=== PATIENT | female | born 1960 | race Caucasian/White ===

== ENCOUNTER → 2024-04-02 06:48 | Outpatient (REF) | payer BC, SELFPAY | LOC: WDC 06:48 | PROVIDERS: ATTENDING PHYSICIAN Internal Medicine Hematology & Oncology | DX: Z12.31 Encounter for screening mammogram for malignant neoplasm of breast (principal) | CPT/HCPCS: 77063; 77067 ==

== ENCOUNTER 2024-07-19 13:37 | Emergency (ER) | payer BC, SELFPAY ==
[2024-07-19 13:39] VITALS: BP 126/94
[2024-07-19] MEDS: DILAUDID 0.5 MG IV (14:28)
[2024-07-19 14:31] VITALS: BMI 25.4
--- NOTE | 2024-07-19 14:32 | ED.GENMED ---
History of Present Illness
General
Chief Complaint: Fall
Source: patient
Exam Limitations: none
Time Seen by Provider: 07/19/24 13:48
Nursing documentation reviewed up to this point in time: agreed with
History of Present Illness
History of Present Illness:
The patient is a pleasant 63-year-old female who reports that she was riding on a horse. Unfortunately, the horse bucked, throwing her forward off of the horse. Patient reports that she landed directly onto her left shoulder. She did not hit her
head. She denies headache, neck pain, back pain, weakness and numbness of her arms and legs. She denies tingling of her arms and legs. She has been able to walk without difficulty. Patient has significant deformity and pain in her left clavicle
area. The pain is primarily in her left upper chest wall area and radiates towards her left upper back. Patient denies being on any blood thinners. She denies abdominal pain. She denies nausea and vomiting. Patient is worried about clavicle
fracture.
Past History
Past History
ED Past Medical History: None
ED Past Surgical History: Other (Breast surgery)
Social History
Tobacco: Non-smoker
Alcohol: None
Drug: None
Personal:
Living: with family
Employment: Other
Family History
Family History: Other
Review of Systems
Review of Systems
Allergies reviewed?: Yes
All Other Systems: ROS reviewed and negative except as documented in HPI and ROS
Constitutional: Reports no symptoms
EENT: Reports no symptoms
Respiratory: Reports no symptoms
Cardiac: Reports other
Musculoskeletal: Reports other (Upper left chest wall pain since injury)
Skin: Reports no symptoms
Neurological: Reports no symptoms
Endocrine: Reports no symptoms
Hematologic/Lymphatic: Reports no symptoms
Psychiatric: Reports no symptoms
Phy Exam
Physical Exam
Physical Exam:
Physical Exam
General: Patient appears uncomfortable but is fully awake, alert. Nontender face and head. No areas of scalp contusion or hematoma.
Neck: supple. Nontender C-spine
Heart: s1/s2 regular rate and rhythm, no murmur. equal radial pulses.
Lungs: no acute respiratory distress. clear bilaterally. Significant swelling and soft tissue tenderness of left clavicular area. No vertebral spine tenderness
Abdomen: Soft throughout. Nondistended
Neuro: alert and oriented. no focal neurological deficits. Excellent hand decision science analyst strength of bilateral hands. Strong pulses of bilateral upper extremities. 5 out of 5 strength in all extremities. Cranial nerves equal and
symmetric bilaterally.
Skin: no rash
Psychiatric: well kept. interactive and cooperative
Extremities: Nontender upper and lower extremities. Nontender pelvis and hips.
Course
Orders/Labs/Results
Orders:
Orders
07/19/24 14:05
HYDROmorphone [Dilaudid] 0.5 mg IV NOW STA
07/19/24 14:06
Clavicle Complete, Left CR [CR Clavicle - Left Complete ] Urgent
Comment:
Reason For Exam: fall from horse
Shoulder, Left 2 View CR [CR Shoulder - Left Min 2 View*] Urgent
Comment:
Reason For Exam: fall from horse
07/19/24 14:07
Scapula, Left Complete CR [CR Scapula - Left Complete ] Urgent
Comment:
Reason For Exam: fall from horse
07/19/24 14:09
CR Chest - 2 Views Urgent
Comment:
Reason For Exam: fall off horse, L clavicle pain and L scapular bandar
07/19/24 15:21
Ondansetron Injectable [Zofran] 4 mg IV NOW STA
07/19/24 15:22
Ondansetron Injectable [Zofran] 4 mg .ROUTE .STK-MED ONE
Vital Signs
Initial and Last Documented VS:
Initial Vital Signs
Temp Pulse Resp BP Pulse Ox
98.1 F 79 18 126/94 99
07/19/24 13:39 07/19/24 13:39 07/19/24 13:39 07/19/24 13:39 07/19/24 13:39
Last Documented Vital Signs
Temp Pulse Resp BP Pulse Ox
98.1 F 79 18 126/94 99
07/19/24 13:39 07/19/24 13:39 07/19/24 13:39 07/19/24 13:39 07/19/24 13:39
MDM/Problems Addressed
Differential Diagnosis Includes:
Left clavicular fracture, rib fracture, pulmonary contusion, scapular fracture
MDM/Problems Addressed:
Patient presents with left chest wall pain and swelling after falling off of a horse today
*Radiology
Radiology exam reviewed: preliminary read by ED provider (Chest x-ray read by me. No acute disease. Left shoulder x-ray reviewed by me. No acute disease. Left scapular x-ray reviewed by me. No acute disease. Left clavicular fracture seen by
me.) and radiology read reviewed
*Pulse Oximetry
Patient hypoxic: no
*EKG
Interpreted by ED Provider?: NA
*Implementation Technician Interpretation
Rate: normal
Interpretation: normal
Rhythm: sinus
*Critical Care Note
Total Time (30-74mins, 75-104mins- exclusive of procedures): Not Applicable
Data Reviewed
Review of Other/Old Records Reveals: Operative Reports ([address] Maxwell when patient underwent lymph node mapping and biopsy)
Source: patient
Update Note
Update Note:
Patient has no evidence of neck, back, face or head injury. Patient was given Zofran because shortly after having the Dilaudid, she got nauseous. She reports that the nausea is much better. Patient is drinking fluids and eating crackers. Patient
will be encouraged to take Motrin and Tylenol for pain control of her clavicle fracture and follow-up with Ortho. Patient has strong pulses in her bilateral upper extremities and excellent cap refill.
ED Attending Note
-
Portions of this chart may have been created with voice recognition software.� Occasional wrong word or��sound alike� substitutions may have occurred due to the inherent limitations of voice recognition software.
Discharge Plan
Departure
Patient Disposition: Home (Routine Discharge)
Date of Disposition: 07/19/24
Time of Disposition: 15:39
Patient with high blood pressure during this ER visit?: No
Condition: Good
Discharge Problem:
closed distal left clavicle fracture
Instructions: Broken Collarbone ED, How to Use a Shoulder Sling ED, Fractures - Clavicle (Adult)
Prescriptions:
No Action
tobramycin 1 DROP drops
2 drops LEFT EYE Q4HWA Qty: 1 0RF
lorazepam 1 MG tablet
1 mg PO Q4HPRN PRN (Reason: Anxiety) Qty: 15 0RF
Referrals:
Ronnell Bruce MD [Family Provider] -
Mesfin Cotton MD [Active] - (Call sunday to see as soon as possible)
Activity Restrictions/Additional Instructions:
Please take ibuprofen/Motrin 600 mg every 6-8 hours with food for pain. In addition to this, you could also take 1000 mg of Tylenol every 4-6 hours for pain. Please call orthopedic doctor this Sunday to schedule follow-up soon as possible.
Interventions
Interventions:
*Risk Screen - Suicide Last Done: 07/19/24 14:31
*General Assessment Last Done: 07/19/24 13:39
*Neglect/Abuse Screening Last Done: 07/19/24 14:31
*ED COVID-19 Vaccine History Last Done: 07/19/24 14:31
ED-Musculoskeletal Assessment Last Done: 07/19/24 14:47
ED- Neurological Assessment Last Done: 07/19/24 14:47
ED-Skin Assessment Last Done: 07/19/24 14:47
Discharge Date and Time
Print Language: SLOVENIAN
[2024-07-19] MEDS: ZOFRAN 4 MG IV (15:24)
== END 2024-07-19 15:57 | disposition home or self-care (01) ==
LOC: EMR 13:37
PROVIDERS: EMERGENCY PHYSICIAN Emergency Medicine; FAMILY PHYSICIAN Family Medicine
DX: M25.512 Pain in left shoulder (principal); S42.032A Displaced fracture of lateral end of left clavicle, initial encounter for closed fracture; V80.010A Animal-rider injured by fall from or being thrown from horse in noncollision accident, initial encounter; Y93.52 Activity, horseback riding
CPT/HCPCS: 99283; 96374; 96375; 71046; 73000; 73010; 73030

== ENCOUNTER 2024-07-29 06:20 | Day surgery (SDC) | payer BC, SELFPAY ==
[2024-07-23 08:59] LABS: Hematocrit 36.5 % (37.0-47.0); Hemoglobin 12.3 g/dL (12.0-16.0); Mean Corp Hgb Conc. 33.7 g/dL (33.0-37.0); Mean Corpuscular Hgb 30.4 pg (27.0-31.0); Mean Corpuscular Volume 90.1 fL (81.0-99.0); Mean Platelet Volume 10.3 fL (7.4-10.4); Platelet Count 196 10^3/uL (130-400); Red Blood Cell Count 4.05 10^6/uL (4.20-5.40); Red Cell Dist. Width 13.4 % (11.5-14.5); White Blood Cell Count 6.6 10^3/uL (4.8-10.8)
[2024-07-23 10:51] VITALS: BMI 23.6
[2024-07-29] VITALS (12 sets, daily range): BP systolic 109–150; BP diastolic 68–90; BMI 23.6
[2024-07-29] MEDS: CELEBREX 200 MG PO (07:32)
[2024-07-29] MEDS: TYLENOL 1000 MG PO (07:32)
--- NOTE | 2024-07-29 07:50 | PTCARENOTE ---
Patient states that she has a lumpectomy and sentinel node surgery [address] Morfin made aware and orders to start the IV on the right arm and clean the site very well. Patient agreeable to use the right arm for surgery. Can not use the
left arm due to surgical site today.
[2024-07-29] MEDS: ZOFRAN 4 MG IV (10:51)
[2024-07-29] MEDS: DILAUDID 0.5 MG IV (11:05)
[2024-07-29] MEDS: DILAUDID 0.25 MG IV (11:18)
[2024-07-29] MEDS: COMPAZINE 5 MG IV (12:58)
== END 2024-07-29 13:50 | disposition home or self-care (01) ==
LOC: SDS 06:20
PROVIDERS: ATTENDING PHYSICIAN Orthopaedic Surgery; FAMILY PHYSICIAN Family Medicine
DX: S42.032A Displaced fracture of lateral end of left clavicle, initial encounter for closed fracture (principal); V80.010A Animal-rider injured by fall from or being thrown from horse in noncollision accident, initial encounter
CPT/HCPCS: 23515; 36415; 73030; 76000; 85027; 93005; C1713

== ENCOUNTER 2024-10-08 14:14 | Outpatient (RCR) | payer BC, SELFPAY | END 2024-10-08 23:59 | disposition home or self-care (01) | LOC: RPT 14:14 | PROVIDERS: ATTENDING PHYSICIAN Orthopaedic Surgery; FAMILY PHYSICIAN Family Medicine | DX: Z47.89 Encounter for other orthopedic aftercare (principal); Z73.6 Limitation of activities due to disability; M62.81 Muscle weakness (generalized); M25.511 Pain in right shoulder; Z85.3 Personal history of malignant neoplasm of breast | CPT/HCPCS: 97010; 97110; 97112; 97140; 97162 ==

== ENCOUNTER 2024-10-22 13:09 | Outpatient (RCR) | payer BC, SELFPAY | END 2024-10-22 13:48 | disposition home or self-care (01) | LOC: RPT 13:09 | PROVIDERS: ATTENDING PHYSICIAN Orthopaedic Surgery; FAMILY PHYSICIAN Family Medicine | DX: Z47.89 Encounter for other orthopedic aftercare (principal); Z73.6 Limitation of activities due to disability; M62.81 Muscle weakness (generalized); M25.512 Pain in left shoulder; M25.511 Pain in right shoulder; Z85.3 Personal history of malignant neoplasm of breast | CPT/HCPCS: 97010; 97110; 97112; 97140 ==

== ENCOUNTER 2024-10-30 06:14 | Day surgery (SDC) | payer BC, SELFPAY | END 2024-10-30 15:04 | disposition home or self-care (01) | LOC: GI 06:14 | PROVIDERS: ATTENDING PHYSICIAN Internal Medicine | DX: Z12.11 Encounter for screening for malignant neoplasm of colon (principal); R19.5 Other fecal abnormalities; K64.8 Other hemorrhoids | CPT/HCPCS: G0121 ==

== ENCOUNTER → 2025-04-06 07:19 | Outpatient (REF) | payer BC, SELFPAY | LOC: WDC 07:19 | PROVIDERS: ATTENDING PHYSICIAN Physician Assistant | DX: Z12.31 Encounter for screening mammogram for malignant neoplasm of breast (principal) | CPT/HCPCS: 77063; 77067 ==